=== PATIENT | female | born 1975 | race Caucasian/White ===

== ENCOUNTER → 2017-05-02 | Outpatient (CLI) | payer OTHER ==
[2017-05-02 11:42] LABS: CREATININE 0.7 mg/dL (0.5-1.1); ESTIMATED GFR (MDRD EQUATION) > 60
== END | disposition disaster alternative care site (69) ==
LOC: GRAD 10:59 → GLAB 11:00 → GRAD 13:00
PROVIDERS: Family Medicine
DX: R10.12 Left upper quadrant pain (principal)